=== PATIENT | male | born 1955 | race Caucasian/White ===

== ENCOUNTER 2021-02-16 10:51 | Observation (INO) ==
[2021-02-16 11:53] LABS: Albumin 3.3 g/dL (3.5-5.7); Albumin/Globulin Ratio 0.9 (1.1-2.2); Bilirubin,Direct 0.6 mg/dL (0.0-0.2); Bilirubin,Indirect 0.4 mg/dL (0.0-1.0); Calcium 8.6 mg/dL (8.6-10.3); Globulin 3.8 g/dL (2.4-3.5); Potassium 3.7 mEq/L (3.5-5.1); Total Protein 7.1 g/dL (6.4-8.9); Troponin I 0.04 ng/mL (< 0.04)
[2021-02-16 12:05] LABS: Thyroid Stimulating Hormone 1.706 mcIU/mL (0.340-5.600)
[2021-02-16] MEDS ORDERED: Azithromycin 250 MG TABLET PO SCH (12:15)
[2021-02-16] MEDS ORDERED: 0.9 % Sodium Chloride 500 ML IVC ONE (12:20)
[2021-02-16 12:32] LABS: Hematocrit 36.7 % (37.5-50.1); Hemoglobin 12.3 g/dL (12.9-16.9); Mean Corpuscular HGB Conc 33.5 g/dL (31.6-35.5); Mean Corpuscular Hemoglobin 27.8 pg (28.0-33.3); Mean Corpuscular Volume 82.8 fL (83.0-100.0); Mean Platelet Volume 10.9 fL (9.4-12.4); Platelet Count 236 K/mcL (140-400); Red Blood Count 4.43 M/mcL (4.19-5.50); Red Cell Distribution Width 14.2 % (11.5-14.5); White Blood Count 13.1 K/mcL (4.3-11.1)
[2021-02-16] MEDS ORDERED: cefTRIAXone 1,000 MG in Water for inj. (sterile) 10 ML IVP SCH (13:00)
[2021-02-16 13:01] LABS: Amorphous Sediment,Urine Few per hpf (None-Few); Bacteria,Urine Few per hpf (None-Few); Bilirubin,Urine Negative (Negative); Blood,Urine Large (Negative); Clarity,Urine Ex.Turbid (Clear); Color,Urine Yellow (Yellow); Glucose,Urine (UA) Normal (Normal); Hyaline Casts,Urine Few per lpf (None Seen); Ketones,Urine Trace mg/dL (Negative); Leukocyte Esterase,Urine Small (Negative); Mucus,Urine Few per lpf (None-Few); Nitrite,Urine Negative (Negative); Protein,Urine >=600 mg/dL (Neg-Trace); Specific Gravity,Urine 1.021 (1.010-1.025); Squamous Epithelial Cell,Urine Few per hpf (None-Few); Urobilinogen,Urine Normal (Normal); WBC,Urine 15-30 per hpf (0-3)
[2021-02-16 13:16] LABS: Lymphocytes # 0.3 K/mcL (0.6-4.6); Monocytes # 0.8 K/mcL (0.0-1.3); Neutrophils # 12.1 K/mcL (1.6-8.9); Platelet Estimate Normal (Normal)
[2021-02-16 13:23] LABS: Potassium,Urine 49.9 mEq/L; Sodium, Urine 16.4 mEq/L
[2021-02-16 13:31] LABS: Adenovirus Not Detected (Not Detect); Bordetella Pertussis Not Detected (Not Detect); Chlamydophila pneumoniae Not Detected (Not Detect); Coronavirus 229E Not Detected (Not Detect); Coronavirus HKU1 Not Detected (Not Detect); Coronavirus NL63 Not Detected (Not Detect); Coronavirus OC43 Not Detected (Not Detect); Human Metapneumovirus Not Detected (Not Detect); Human Rhinovirus/Enterovirus Not Detected (Not Detect); Influenza A Subtype 2009 H1 Not Detected (Not Detect); Influenza B Not Detected (Not Detect); Mycoplasma pneumoniae Not Detected (Not Detect); Parainfluenza Virus 1 Not Detected (Not Detect); Parainfluenza Virus 2 Not Detected (Not Detect); Parainfluenza Virus 3 Not Detected (Not Detect); Parainfluenza Virus 4 Not Detected (Not Detect); Respiratory Syncytial Virus Not Detected (Not Detect); SARS-CoV-2 Not Detected (Not Detect)
[2021-02-16] MEDS ORDERED: D5% in Water 1,000 ML IVC PRN (14:43)
[2021-02-16] MEDS ORDERED: Dextrose Gel 15 GM/37.5 ML TUBE PO PRN ×2 (14:43)
[2021-02-16] MEDS ORDERED: Acetaminophen 325 MG TABLET PO PRN (14:43)
[2021-02-16] MEDS ORDERED: *HR* Dextrose 50 % in Water (Vial) 50 ML VIAL IVP PRN (14:43)
[2021-02-16] MEDS ORDERED: Mag Hydrox/Al Hydrox/Simeth 30 ML UDC PO PRN (14:43)
[2021-02-16] MEDS ORDERED: Ondansetron 4 MG/2 ML VIAL IVP PRN (14:43)
[2021-02-16] MEDS ORDERED: Naloxone 0.4 MG/ML INJ IVP PRN (14:43)
[2021-02-16] MEDS ORDERED: MOM Conc 10 ML UD.LIQ PO PRN (14:43)
[2021-02-16] MEDS: Insulin LISPRO 300 UNITS/3 ML VIAL SUBQ SCH ×2 (15:46→22:14)
[2021-02-16] MEDS: 0.9 % Sodium Chloride 1,000 ML IVC SCH ×2 (15:54→19:23)
[2021-02-16] MEDS: GuaiFENesin/Codeine Oral Soln 5 ML UDC PO PRN ×2 (16:40→22:49)
[2021-02-16] MEDS: levoFLOXacin 750 MG/150 ML 750 MG/150 ML BAG IVPB SCH (16:41)
[2021-02-16 18:37] LABS: Estimated Average Glucose 146 mg/dl; Hemoglobin A1C 6.7 %
[2021-02-16] MEDS ORDERED: 0.9 % Sodium Chloride 1,000 ML ONE (20:13)
[2021-02-17 00:41] LABS: Hematocrit 34.1 % (37.5-50.1); Hemoglobin 11.7 g/dL (12.9-16.9); Mean Corpuscular HGB Conc 34.3 g/dL (31.6-35.5); Mean Corpuscular Hemoglobin 28.1 pg (28.0-33.3); Mean Corpuscular Volume 81.8 fL (83.0-100.0); Mean Platelet Volume 10.9 fL (9.4-12.4); Platelet Count 199 K/mcL (140-400); Red Blood Count 4.17 M/mcL (4.19-5.50); Red Cell Distribution Width 14.2 % (11.5-14.5); White Blood Count 9.2 K/mcL (4.3-11.1)
[2021-02-17 00:53] LABS: Calcium 6.7 mg/dL (8.6-10.3); Magnesium 1.5 mg/dL (1.6-2.6); Potassium 2.9 mEq/L (3.5-5.1)
[2021-02-17 00:58] LABS: Troponin I 0.06 ng/mL (< 0.04)
[2021-02-17 01:21] LABS: Lymphocytes # 0.7 K/mcL (0.6-4.6); Monocytes # 0.6 K/mcL (0.0-1.3); Neutrophils # 7.9 K/mcL (1.6-8.9)
[2021-02-17 01:22] LABS: Platelet Estimate Normal (Normal); Smudge Cells Present (Not Present)
[2021-02-17] MEDS: *HR* HYDROcodone/Acet 10/325 mg TABLET PO PRN ×3 (01:49→18:28)
[2021-02-17] MEDS: 0.9 % Sodium Chloride 1,000 ML IVC SCH (02:48)
[2021-02-17] MEDS: GuaiFENesin/Codeine Oral Soln 5 ML UDC PO PRN (05:51)
[2021-02-17] MEDS ORDERED: *HR* Enoxaparin 40 MG/0.4 ML SYRINGE SQ SCH (07:00)
[2021-02-17] MEDS ORDERED: Potassium Chloride 20 MEQ, Lidocaine 1% 2 ML in 0.9 % Sodium Chloride 250 ML IVPB ONE (07:05)
[2021-02-17] MEDS: Insulin LISPRO 300 UNITS/3 ML VIAL SUBQ SCH ×4 (07:50→20:59)
[2021-02-17] MEDS: allopurinoL 300 MG TABLET PO SCH (08:17)
[2021-02-17] MEDS: amLODIPine 5 MG TABLET PO SCH (08:17)
[2021-02-17] MEDS: lisinopriL 20 MG TABLET PO SCH (08:17)
[2021-02-17] MEDS ORDERED: Isovue-370 500 ML BOTTLE IVP ONE (08:58)
[2021-02-17] MEDS ORDERED: ATORVASTATIN PO SCH (09:00)
[2021-02-17] MEDS ORDERED: Azithromycin 500 MG in 0.9 % Sodium Chloride 250 ML IVPB ONE (09:00)
[2021-02-17] MEDS ORDERED: [UNRECOGNIZED DRUG - OTHER] PO SCH (09:00)
[2021-02-17] MEDS ORDERED: cefTRIAXone 2,000 MG in Water for inj. (sterile) 20 ML IVP SCH (09:00)
[2021-02-17] MEDS ORDERED: NON-FORMULARY MEDICATION 1 EACH EACH (Amlodipine Besylate/Benazepril [Amlodipine-Benazepri PO SCH (09:00)
[2021-02-17] MEDS ORDERED: AMLODIPINE PO SCH (09:00)
[2021-02-17] MEDS ORDERED: Perflutren Lipid Microsphere 1.3 ML in 0.9 % Sodium Chloride 8.7 ML IVP PRN (11:27)
[2021-02-17] MEDS: levoFLOXacin 750 MG/150 ML 750 MG/150 ML BAG IVPB SCH (18:12)
[2021-02-17] MEDS: Benzonatate 100 MG CAPSULE PO PRN (20:59)
[2021-02-18] MEDS: *HR* HYDROcodone/Acet 10/325 mg TABLET PO PRN ×4 (00:42→20:47)
[2021-02-18 05:41] LABS: Basophils % 0.2 %; Eosinophils # 0.1 K/mcL (0.0-0.6); Eosinophils % 0.7 %; Hematocrit 35.8 % (37.5-50.1); Hemoglobin 11.5 g/dL (12.9-16.9); Immature Granulocytes % 1.2 % (0-4); Lymphocytes # 0.7 K/mcL (0.6-4.6); Lymphocytes % 8.4 %; Mean Corpuscular HGB Conc 32.1 g/dL (31.6-35.5); Mean Corpuscular Hemoglobin 26.9 pg (28.0-33.3); Mean Corpuscular Volume 83.8 fL (83.0-100.0); Mean Platelet Volume 10.8 fL (9.4-12.4); Monocytes # 0.4 K/mcL (0.0-1.3); Monocytes % 5.1 %; Neutrophils # 7.1 K/mcL (1.6-8.9); Platelet Count 221 K/mcL (140-400); Red Blood Count 4.27 M/mcL (4.19-5.50); Red Cell Distribution Width 14.6 % (11.5-14.5); Segmented Neutrophils % 84.4 %; White Blood Count 8.5 K/mcL (4.3-11.1)
[2021-02-18] MEDS: *HR* Heparin 5,000 UNIT/ML VIAL SQ SCH ×2 (05:46→16:19)
[2021-02-18 05:57] LABS: Calcium 8.3 mg/dL (8.6-10.3); Magnesium 2.2 mg/dL (1.6-2.6); Phosphorous 1.8 mg/dL (2.7-4.5); Potassium 4.3 mEq/L (3.5-5.1)
[2021-02-18] MEDS: Benzonatate 100 MG CAPSULE PO PRN ×3 (07:48→20:47)
[2021-02-18] MEDS: lisinopriL 20 MG TABLET PO SCH (07:48)
[2021-02-18] MEDS: allopurinoL 300 MG TABLET PO SCH (07:48)
[2021-02-18] MEDS: amLODIPine 5 MG TABLET PO SCH (07:48)
[2021-02-18] MEDS: Insulin LISPRO 300 UNITS/3 ML VIAL SUBQ SCH ×4 (07:48→20:37)
[2021-02-18] MEDS: GuaiFENesin/Codeine Oral Soln 5 ML UDC PO PRN (14:25)
[2021-02-18] MEDS: levoFLOXacin 750 MG/150 ML 750 MG/150 ML BAG IVPB SCH (16:19)
[2021-02-19] MEDS: GuaiFENesin/Codeine Oral Soln 5 ML UDC PO PRN (05:27)
[2021-02-19] MEDS: *HR* Heparin 5,000 UNIT/ML VIAL SQ SCH (05:28)
[2021-02-19] MEDS: *HR* HYDROcodone/Acet 10/325 mg TABLET PO PRN (05:28)
[2021-02-19 06:41] LABS: Basophils % 0.5 %; Eosinophils # 0.2 K/mcL (0.0-0.6); Eosinophils % 2.3 %; Hemoglobin 11.2 g/dL (12.9-16.9); Immature Granulocytes % 2.1 % (0-4); Lymphocytes # 0.9 K/mcL (0.6-4.6); Lymphocytes % 11.9 %; Mean Corpuscular Hemoglobin 26.9 pg (28.0-33.3); Mean Corpuscular Volume 84.1 fL (83.0-100.0); Mean Platelet Volume 10.6 fL (9.4-12.4); Monocytes # 0.6 K/mcL (0.0-1.3); Neutrophils # 5.6 K/mcL (1.6-8.9); Platelet Count 262 K/mcL (140-400); Red Blood Count 4.16 M/mcL (4.19-5.50); Red Cell Distribution Width 14.6 % (11.5-14.5); Segmented Neutrophils % 75.2 %; White Blood Count 7.5 K/mcL (4.3-11.1)
[2021-02-19 07:06] LABS: Calcium 8.6 mg/dL (8.6-10.3); Phosphorous 2.1 mg/dL (2.7-4.5); Potassium 5.1 mEq/L (3.5-5.1)
[2021-02-19 07:12] LABS: Platelet Estimate Normal (Normal); Reactive Lymphocytes Present (Not Present)
[2021-02-19] MEDS ORDERED: Insulin Human Regular 10 UNIT in 0.9 % Sodium Chloride 10 ML IV ONE (07:25)
[2021-02-19] MEDS ORDERED: *HR* Dextrose 50 % in Water (Vial) 50 ML VIAL IVP ONE (07:26)
[2021-02-19 07:30] VITALS: BP 123/72
[2021-02-19] MEDS: lisinopriL 20 MG TABLET PO SCH (09:28)
[2021-02-19] MEDS: allopurinoL 300 MG TABLET PO SCH (09:29)
[2021-02-19] MEDS: Insulin LISPRO 300 UNITS/3 ML VIAL SUBQ SCH (09:29)
[2021-02-19] MEDS: amLODIPine 5 MG TABLET PO SCH (09:29)
== END 2021-02-19 14:27 | disposition home or self-care (01) ==
LOC: 2ANU 10:51 → EMEROOARM 10:51 → 2ANU 15:04
PROVIDERS: ADMIT Internal Medicine; ATTEND Internal Medicine